=== PATIENT | female | born 1955 | race Caucasian/White ===

== ENCOUNTER → 2017-08-17 | Outpatient (CLI) | payer OTHER ==
[2017-08-17 13:56] LABS: CREATININE 1.2 mg/dL (0.6-1.3)
[2017-08-17 14:12] LABS: ALBUMIN 3.9 g/dL (3.4-5.0); ALKALINE PHOSPHATASE 77 U/L (46-116); ANION GAP 9 mmol/L (7-16); BUN 18 mg/dL (7-18); CALCIUM 9.3 mg/dL (8.5-10.1); CHLORIDE 105 mmol/L (98-107); CHOLESTEROL 175 mg/dL (<200); CO2 26 mmol/L (21-32); CREATININE 1.1 mg/dL (0.6-1.3); GLUCOSE 93 mg/dL (70-99); HDL CHOLESTEROL 61 mg/dL (>40); LDL CHOLESTEROL 106 mg/dL (<100); POTASSIUM 4.1 mmol/L (3.5-5.1); SGOT 29 U/L (15-37); SGPT 35 U/L (30-65); SODIUM 140 mmol/L (136-145); TC:HDL 2.9 Ratio (Not establshd); TOTAL BILIRUBIN 0.8 mg/dL (<0.1-1.0); TOTAL PROTEIN 6.7 g/dL (6.4-8.2); TRIGLYCERIDE 42 mg/dL (<150); VLDL 8 mg/dL (<40)
[2017-08-17 14:13] LABS: SERUM ASSESSMENT Clear
--- NOTE | 2017-08-17 16:17 | 2DMMODE ---
[place] [address] 2 D/M-MODE ECHOCARDIOGRAM Name: DANALIZETH Room: [facility]#: [id number] Admission: 08/17/17 Attend Phys: Rome Velazquez MD Discharge: Date of : 59 Date of Service: 08/17/17 1616 Report #: [id number] THIS REPORT FOR: //name// APPROVED REPORT Study performed: 08/17/2017 14:49:18 EXAM: Comprehensive 2D, Doppler, and color-flow Echocardiogram Patient Location: Out-Patient BSA: 1.69 HR: 54 bpm BP: 122/76 mmHg Other Information Study Quality: Good Indications Murmur 2D Dimensions LVEF(%): 76.05 (>50%) IVSd: 12.29 (7-11mm) LVOT Diam: 20.79 (18-24mm) LVDd: 42.12 mm PWd: 10.53 (7-11mm) Ascending Ao: 46.92 (22-36mm) LVDs: 23.41 (25-40mm) Aortic Root: 30.40 mm Del Angel's LVEF: 76.05 % Volumes Left Atrial Volume (Systole) LA ESV Index: 19.60 mL/m2 Aortic Valve AoV Peak Alexander.: 1.27 m/s AO Peak Gr.: 6.46 mmHg LVOT Max P.94 mmHg AO Mean Gr.: 2.97 mmHg LVOT Mean P.48 mmHg LVOT Max V: 1.32 m/s AO V2 VTI: 29.61 cm LVOT Mean V: 0.86 m/s PRASHANT (VTI): 3.74 cm2 LVOT V1 VTI: 32.66 cm AI Vilas: 2.82 m/s2 AI PHT: 480.77 ms Mitral Valve E/A Ratio: 2.77 [place] [address] 2 D/M-MODE ECHOCARDIOGRAM Name: LIZETH CORTEZ Room: [facility]#: [id number] Admission: 08/17/17 Attend Phys: Rome Velazquez MD Discharge: Date of : 59 Date of Service: 08/17/17 1616 Report #: [id number] MV Decel. Time: 107.74 ms MV E Max Alexander.: 0.77 m/s MV PHT: 31.24 ms MVA (PHT): 7.04 cm2 TDI E/Lateral E': 6.42 E/Medial E': 8.56 Medial E' Alexander.: 0.09 m/s Lateral E' Alexander.: 0.12 m/s Pulmonary Valve PV Peak Alexander.: 0.65 m/s PV Peak Gr.: 1.71 mmHg Tricuspid Valve TR Peak Gr.: 19.62 mmHg RVSP: 24.62 mmHg Left Ventricle The left ventricle is normal size. There is normal LV segmental wall motion. There is normal left ventricular wall thickness. Left ventricular systolic function is normal. The left ventricular ejection fraction is within the normal range. LVEF is 55-60%. Right Ventricle The right ventricle is normal size. The right ventricular systolic function is normal. Atria Left atrium is mildly dilated. The right atrium size is normal. Aortic Valve Mild aortic valve sclerosis. Moderate aortic regurgitation. There is no aortic valvular stenosis. Mitral Valve The mitral valve is normal in structure. Mild mitral regurgitation. No evidence of mitral valve stenosis. Tricuspid Valve The tricuspid valve is normal in structure. Mild tricuspid regurgitation. The RVSP is __24.6 mmHg. Pulmonic Valve The pulmonary valve is normal in structure. There is [place] [address] 2 D/M-MODE ECHOCARDIOGRAM Name: LIZETH CORTEZ Room: [facility]#: [id number] Admission: 08/17/17 Attend Phys: Rome Velazquez MD Discharge: Date of : 59 Date of Service: 08/17/17 1616 Report #: [id number] Great Vessels Aortic root is moderately dilated. Ascending aorta is dilated. IVC is normal in size and collapses with >50% inspiration Pericardium There is no pericardial effusion. <Conclusion> The left ventricle is normal size. There is normal left ventricular wall thickness. Left ventricular systolic function is normal. The left ventricular ejection fraction is within the normal range. The right ventricle is normal size. Left atrium is mildly dilated. Mild aortic valve sclerosis. Moderate aortic regurgitation. There is no aortic valvular stenosis. The mitral valve is normal in structure. Mild mitral regurgitation. The tricuspid valve is normal in structure. Mild tricuspid regurgitation. The RVSP is __24.6 mmHg. Aortic root is moderately dilated. IVC is normal in size and collapses with >50% inspiration There is no pericardial effusion. There is normal LV segmental wall motion. LVEF is 55-60%. <ELECTRONICALLY SIGNED> By: Charlie Marshall MD, FACC 08/17/17 1616 1616 1616 Charlie Marshall MD, FACC /INF
== END ==
LOC: M.CT 08-10 10:11 → M.LAB 13:00 → M.CT 14:00 → M.CRD 15:00
PROVIDERS: Internal Medicine Cardiovascular Disease
DX: I08.3 Combined rheumatic disorders of mitral, aortic and tricuspid valves (principal); I71.2 Thoracic aortic aneurysm, without rupture

== ENCOUNTER → 2018-08-11 | Outpatient (CLI) | payer OTHER | LOC: M.ULTRA 10:30 | DX: E04.1 Nontoxic single thyroid nodule (principal) ==

== ENCOUNTER → 2019-07-30 | Outpatient (CLI) | payer OTHER ==
[2019-07-30 09:18] LABS: CREATININE 1.1 mg/dL (0.6-1.3)
== END ==
LOC: M.LAB 08:00 → M.CT 09:30
PROVIDERS: Internal Medicine Cardiovascular Disease
DX: I71.2 Thoracic aortic aneurysm, without rupture (principal); I08.0 Rheumatic disorders of both mitral and aortic valves; N28.89 Other specified disorders of kidney and ureter